=== PATIENT | female | born 1990 | race Two or more races ===

== ENCOUNTER 2016-08-17 18:08 | Emergency (ER) | payer MEDICAID ==
--- NOTE | ~2016-08-17 | ER ---
PATIENT'S NAME: FALLON SYKES [facility] AGE: 25 Y [address] ROOM: [place] [id number] LOCATION: ED ADMIT DATE: 08/17/2016 ER/Outpatient Report DISCHARGE DATE: 08/17/2016 FAMILY PHYSICIAN: Deya Barrientos ATTENDING PHYSICIAN: Tamela Paula Time of Arrival: 1808 hours. Time of Evaluation: 1815 hours. CHIEF COMPLAINT: Nasal congestion, migraine headache, cough. HISTORY OF PRESENT ILLNESS: This is a 25-year-old female, who presents to the ER. She states she has not been feeling well for the past few days. She states she has had lots of nasal congestion, which is causing her to have a migraine headache. She has also had a congested cough as well, that makes her feel short of breath at times. She states that she has not really taken anything [id number] except for some Tylenol with minimal relief of her headache. She states she normally gets bronchitis a couple of times a year here, and she has not had bronchitis yet this year. ALLERGIES: MORPHINE AND REGLAN. MEDICATIONS: Please see medication list in nurse's notes. PAST MEDICAL HISTORY: Migraines, anxiety, depression. PAST SURGERIES: Knee surgery. SOCIAL HISTORY: She smokes a fourth a pack a day for last 8 years. Drinks alcohol rarely. REVIEW OF SYSTEMS: A 10-point review of system was completed and was negative with the exception of those discussed in the HPI. PHYSICAL EXAMINATION: VITAL SIGNS: Height 5 feet 10 inches stated, weight 117 kg taken, blood pressure is 156/85, pulse 103, respirations 20, temperature 97.8 degrees tympanically, saturations 99% on room air. Atilio Coma Score is 15. PATIENT'S NAME: FALLON SYKES [facility] AGE: 25 Y [address] ROOM: [place] [id number] LOCATION: [facility] ADMIT DATE: 08/17/2016 ER/Outpatient Report DISCHARGE DATE: 08/17/2016 FAMILY PHYSICIAN: Deya Barrientos ATTENDING PHYSICIAN: Tamela Paula GENERAL: An alert, calm, well-developed female, in no acute distress. HEENT: Head: Normocephalic. Eyes: Pupils are equal and reactive to light. Ears: Right TM has effusion. Left TM is clear. Nose: Turbinates pink with purulent drainage. Throat: No exudates or erythema. She does display moist mucous membranes. LUNGS: Clear to auscultation, but she does have a harsh cough. HEART: Regular rate and rhythm. EXTREMITIES: No clubbing, cyanosis, or edema. She has full range of motion of all limbs. LABORATORY DATA AND X-RAYS: None were done. IMPRESSION: 1. Sinusitis. 2. Bronchitis. 3. Migraine. ASSESSMENT AND PLAN: We did give the patient Toradol 60 mg IM along with Phenergan 50 mg IM. We will dismiss her to home with a prescription for Z-Brayan to use as directed. She needs to continue to push fluids, monitor her symptoms, and follow up with her primary care physician if she does not improve. The patient understands and agrees with care. ELIF SCOTT PA-C FOR MD ELIGIO MENDIOLA/osvaldo /[id number] d: 08/18/16 0023 t: 08/25/16 1839, OUTPATIENT REPORT
[~2016-08-17 18:08] MED LIST: ACETAMINOPHEN325 MG PO; AMOXICILLIN250 MG PO; EFFEXOR75 MG PO; FEOSOL325 MG PO; FLINTSTONES M100 MCG; PERCOCET 5-3251 EACH PO; PRENATAL 1+1)(P1 TAB PO; PRENATAL GUMMI1 EACH PO; PRINCIPEN 250250 MG PO; PROVENTIL OR V6.7 GM INH; TUMS200 MG PO; TYLENOL EXTRA500 MG PO
== END 2016-08-17 18:54 | disposition disaster alternative care site (69) ==
LOC: GMED 18:08
DX: J40 Bronchitis, not specified as acute or chronic (principal); J32.9 Chronic sinusitis, unspecified; G43.909 Migraine, unspecified, not intractable, without status migrainosus; F17.210 Nicotine dependence, cigarettes, uncomplicated; F41.9 Anxiety disorder, unspecified; F32.9 Major depressive disorder, single episode, unspecified; Z98.890 Other specified postprocedural states; Z88.5 Allergy status to narcotic agent; Z88.8 Allergy status to other drugs, medicaments and biological substances; Z79.899 Other long term (current) drug therapy
CPT/HCPCS: J1885; J2550